=== PATIENT | female | born 1995 | race Two or more races ===

== ENCOUNTER 2020-10-05 06:00 | Inpatient (IN) ==
[2020-10-05] MEDS ORDERED: BUTORPHANOL 2 MG/ML VIAL IV PRN (06:09)
[2020-10-05] MEDS ORDERED: ONDANSETRON 4 MG/2 ML VIAL IV PRN (06:09)
[2020-10-05] MEDS ORDERED: OXYTOCIN/LR 20 UNIT/1,000 ML BAG IV SCH (06:30)
[2020-10-05] MEDS: LACTATED RINGERS 1,000 ML IV SCH ×2 (06:41→14:51)
[2020-10-05 06:42] LABS: Basophils % 0.2 % (0.0-0.8); Eosinophils # 0.1 10*3/uL (0.0-0.87); Eosinophils % 0.8 % (0.00-10.9); Hematocrit 39.8 VOL% (35.7-47.0); Hemoglobin 13.8 GM/DL (12.0-16.0); Immature Granulocytes % 0.2 %; Immature Granulocytes Absolute 0.02 #; Lymphocytes % 22.5 % (21.3-54.2); Mean Corpuscular HGB Conc 34.7 GM/DL (32-36); Mean Corpuscular Volume 89.6 FL (87-102); Mean Platelet Volume 9.6 FL (9.6-12.0); Monocytes % 6.3 % (1.7-12.7); Platelet Count 150 T/CUMM (130-400); Red Blood Count 4.44 MC/CUMM (3.8-5.5); Red Cell Distribution Width 13.2 % (9.3-17.3); White Blood Count 8.9 T/CUMM (4-12)
[2020-10-05] MEDS: MEPERIDINE 50 MG/1 ML VIAL IV PRN ×2 (20:19→22:27)
[2020-10-05 20:46] LABS: Rubella Antibody IgG Result Reactive (NonReactive)
[2020-10-05] MEDS ORDERED: miSOPROStoL 200 MCG TABLET ONE (23:16)
[2020-10-05] MEDS ORDERED: METHYLERGONOVINE 0.2 MG/1 ML AMP ONE (23:17)
[2020-10-05] MEDS ORDERED: LIDOCAINE 1% 50 ML VIAL ONE (23:17)
[2020-10-05] MEDS ORDERED: CARBOPROST TROMETHAMINE 250 MCG/ML AMP IM ONE (23:17)
[2020-10-05] MEDS ORDERED: OXYTOCIN/LR 20 UNIT/1,000 ML BAG IV ONE (23:17)
[2020-10-05] MEDS ORDERED: TRANEXAMIC ACID 1,000 MG/10 ML VIAL ONE (23:17)
[2020-10-06] MEDS ORDERED: OXYTOCIN/LR 20 UNIT/1,000 ML BAG IV ONE ×2 (00:21→01:10)
[2020-10-06 00:49] LABS: Cord Arterial Blood HCO3 20.9 MMOL/L
[2020-10-06 00:51] LABS: Cord Venous Blood HCO3 21.4 MMOL/L; Cord Venous Blood PCO2 38.4 MMHG; Cord Venous Blood PO2 34.7
[2020-10-06] MEDS ORDERED: RHO(D) IMMUNE GLOBULIN 300 MCG SYRINGE IM ONE ×2 (03:41→13:37)
[2020-10-06] MEDS ORDERED: LANOLIN 50% CREAM 0.3 OZ TUBE TOP PRN (03:41)
[2020-10-06] MEDS ORDERED: BENZOCAINE 20%/MENTHOL 0.5% SPRAY 56 GM CAN TOP PRN (03:41)
[2020-10-06] MEDS ORDERED: MEASLES/MUMPS/RUBELLA VACCINE 0.5 ML VIAL SUBCUT ONE (03:41)
[2020-10-06] MEDS ORDERED: IBUPROFEN 800 MG TABLET PO PRN (03:41)
[2020-10-06] MEDS ORDERED: WITCH HAZEL PADS 100/JAR TOP PRN (03:41)
[2020-10-06] MEDS ORDERED: DIPH/TET/ACEL PERT BOOSTER VACCINE 0.5 ML VIAL IM ONE (03:41)
[2020-10-06] MEDS ORDERED: HYDROCORTISONE 2.5% RECTAL CREAM 30 GM TUBE TOP PRN (03:41)
[2020-10-06] MEDS ORDERED: ACETAMINOPHEN 325 MG TABLET PO PRN (03:41)
[2020-10-06] MEDS ORDERED: BISACODYL 10 MG SUPP RECTAL PRN (03:41)
[2020-10-06] MEDS ORDERED: oxyCODONE/ACETAMINOPHEN 5-325 MG TABLET PO PRN ×2 (03:41)
[2020-10-06 07:19] LABS: Basophils % 0.1 % (0.0-0.8); Hematocrit 36.1 VOL% (35.7-47.0); Hemoglobin 12.7 GM/DL (12.0-16.0); Immature Granulocytes % 0.5 %; Immature Granulocytes Absolute 0.07 #; Lymphocytes # 1.8 10*3/uL (1.4-4.0); Lymphocytes % 12.6 % (21.3-54.2); Mean Corpuscular HGB Conc 35.2 GM/DL (32-36); Mean Corpuscular Volume 89.1 FL (87-102); Mean Platelet Volume 9.4 FL (9.6-12.0); Monocytes % 6.5 % (1.7-12.7); Neutrophils % 80.3 % (38.7-73.9); Platelet Count 147 T/CUMM (130-400); Red Blood Count 4.05 MC/CUMM (3.8-5.5); Red Cell Distribution Width 13.2 % (9.3-17.3); White Blood Count 14.1 T/CUMM (4-12)
[2020-10-06] MEDS: DOCUSATE SODIUM 100 MG CAPSULE PO SCH ×2 (10:05→21:01)
[2020-10-07] MEDS: DOCUSATE SODIUM 100 MG CAPSULE PO SCH ×2 (07:42→12:19)
[2020-10-07 10:57] VITALS: BP 115/68
== END 2020-10-07 14:00 | disposition home or self-care (01) | DRG 807 ==
LOC: N.LD 06:00 → N.OB 10-06 04:00
PROVIDERS: ADMIT Obstetrics & Gynecology; ATTEND Obstetrics & Gynecology